=== PATIENT | female | born 1950 | race Caucasian/White ===

== ENCOUNTER 2016-05-20 18:04 | Emergency (ER) | payer MEDICARE, OTHER ==
[~2016-05-20] VITALS: Ht 160 cm; Wt 93.2 kg
[2016-05-20 18:07] VITALS: BP 145/82; PULSE 90; RESP 20; O2SAT 96
--- NOTE | 2016-05-20 18:42 | ED.REPORT ---
HPI-Extremity Problem Lower Date of Service May 20, 2016 ED Provider: Vanessa Vargas History of Present Illness: 66-year-old female sent in from the walk-in clinic for a left swollen ankle 6 weeks to have a suspected blood clot. They did a d-dimer today which the patient states was very elevated. She has had a swollen ankle for 6 weeks. No known injury and it hurts more and swells more when she walks. She took a trip to [place] and returned one week prior to the pain and swelling. No calf pain or swelling. Denies shortness of breath or chest pain. No history of DVT Nursing Notes Stated Complaint: POSS BLOOD CLOT,SENT BY Chief Complaint: Extremity Trauma Nursing Notes Reviewed: Yes Allergies: Coded Allergies: Penicillins (Verified Allergy, Mild, 05/20/16) Sulfa (Sulfonamide Antibiotics) (Verified Allergy, Mild, 05/20/16) General Time Seen by MD: 18:39 Chief Complaint Ankle injury left Hx Obtained From: Patient Arrived By: Walk-in Onset Occurred: More than a week ago... (2 months) Symptom Duration: Waxes and wanes Location: : Ankle left Severity: Current: Moderate Severity: Maximum: Moderate Pertinent Negative: Pt denies other symptoms Exacerbated by: Range of motion, Movement Relieved by: Rest Recent Healthcare: Recent doctor visit Similar Sx Previous: No Review of Systems Review of Systems Note: L ankle swelling and pain x 6 weeks Basic Review of Systems Eyes: Vision NL, No discharge ENT: Hearing NL, No pain, No nasal congestion, No pharyngeal pain Respiratory: No shortness of breath, No cough, No wheeze Cardiovascular: No chest pain, No dyspnea on exertion, No orthopnea, No parox noct dyspnea, No palpitations GI: No abdominal pain, No anorexia, No nausea, No vomiting Psychiatric: Normal thought content Constitutional: Denies: Chills, Fatigue, Fever, Lethargy, Malaise, Recent wt loss, Weakness - generalized Musculoskeletal: Reports: Extremity pain, Joint pain, Joint swelling, Denies: Back pain, Extremity swelling, Lumbar pain, Myalgia, Neck pain, Thoracic pain Complete sys rev & neg: except as marked. Physical Exam Initial Vital Signs Vital Signs (First) Date Time Temp Pulse Resp B/P Pulse Ox O2 Delivery O2 Flow Rate FiO2 05/20/16 18:07 36.3 90 20 145/82 96 Room Air Initial VS: Reviewed, Vital signs normal General/Constitutional: Well-developed, Well-nourished Head / Eyes: Atraumatic, Normocephalic, PERRL ENT: Mucous membranes moist, Conjunctiva normal, No scleral icterus Neck: Supple, Non-tender, Full range of motion Respiratory: Breath sounds normal, Clear to auscultation, No respiratory distress Cardiovascular: Regular rate & rhythm, Heart sounds normal, Intact distal pulses Upper Extremities: Vascular intact, Neuro intact, No swelling, No tenderness Skin: Warm, Dry, No cyanosis Neurologic: Alert, Oriented, Nonfocal Psychiatric: Mood/affect normal Ankle / Foot: Atraumatic, No erythema, No deformity, Neurologic intact, Vascular intact Right Ankle: Negative: Achilles deficit, Anterior drawer test pos, Deformity present, Ecchymosis present, Erythema present, Joint effusion present, Neuro deficit present, Open fracture present, Pulse post tib absent, Pulse post tib decreased, ROM reduced, Swelling present..., Tender lat ligaments..., Tender lateral malleolus, Tender medial ligaments, Tender medial malleolus, Tenderness present..., Warmth present generalized swelling and tenderness around lateral and medial malleolus. Foot with generalized swelling. normal color and sensation. pedal pulse present. General/Constitutional: Awake, Alert, Well appearing Respiratory / Chest: Breath sounds NL, Breath sounds = bilat, No respiratory distress, No rales, No rhonchi, No wheezing Cardiovascular: Heart rate NL, Regular rhythm, Heart sounds NL, Peripheral circulation NL Skin: Atraumatic, Color NL Re-Eval/Medical Decision Med Decision/Clinical Course neg for dvt Discharge & Departure Shift Change Sign-Out Laboratory Evaluation: Lab evaluation discussed Imaging Studies: Imaging discussed Response to Therapy: Unchanged Impression: Primary Impression: Ankle sprain Encounter type: initial encounter Involved ligament of ankle: unspecified ligament Laterality: left Qualified Code: S93.402A - Sprain of unspecified ligament of left ankle, initial encounter Disposition: Home Discharge Condition All VS Reviewed: Yes Condition: Stable Patient Instructions: Ankle Sprain (GEN) Additional Instructions: Stay off ankle as much as possible, wear a brace for pain control. Use ice to help with swelling as well. Follow-up with your PCP or ortho regarding pain percent was negative Referrals: OTHER,PHYSICIAN (PCP) Tomasa Wylie MD EDSupervising Provider for APC: Olga Garcia MD, Linnea K ARNP May 20, 2016 18:41
--- NOTE | 2016-05-20 20:54 | DRSVH ---
PROCEDURE: US VEINOUS LEG DUPLEX UNILATERAL, LEFT INDICATIONS: foot/ankle swelling x 6 weeks, elevated ddimer TECHNIQUE: Real-time imaging, as well as color and pulse Doppler interrogation, were performed of the lower extr emity deep veins from the inguinal ligament to the popliteal fossa. COMPARISON: None. FINDINGS: The deep veins are normally compressible, and free of intraluminal thrombus. Color and pu lse Doppler demonstrate normal phasic intraluminal flow. There is normal augmentation response to di stal compression maneuver. IMPRESSION: 1. No evidence of deep venous thrombosis in the left lower extremity. Dictated by: Osmany Granados M.D. on 05/20/2016 at 20:52 Approved by: Osmany Granados M.D. on 05/20/2016 at 20:53
[2016-05-20 20:58] VITALS: BP 122/73; PULSE 83; RESP 20; O2SAT 95
== END 2016-05-20 20:59 | disposition home or self-care (01) ==
LOC: SED 18:04
DX: S93.402A Sprain of unspecified ligament of left ankle, initial encounter (principal); X50.9XXA Other and unspecified overexertion or strenuous movements or postures, initial encounter; Y93.89 Activity, other specified; Y92.89 Other specified places as the place of occurrence of the external cause; Y99.8 Other external cause status; I10 Essential (primary) hypertension; E78.5 Hyperlipidemia, unspecified; G89.29 Other chronic pain; J30.2 Other seasonal allergic rhinitis; F32.9 Major depressive disorder, single episode, unspecified; Z88.0 Allergy status to penicillin; Z88.2 Allergy status to sulfonamides